=== PATIENT | male | born 1975 | race Caucasian/White ===

== ENCOUNTER 2018-06-09 12:56 | Emergency (ER) | payer SELFPAY ==
[2018-06-09] MEDS ORDERED: Ibuprofen 800 MG Tab PO ONE (13:15)
--- NOTE | 2018-06-09 13:19 | EDM.PDOC ---
ED HPI GENERAL MEDICAL PROBLEM - General Chief Complaint: Lower Extremity Injury/Pain Stated Complaint: RT LEG PAIN Time Seen by Provider: 06/09/18 13:10 - History of Present Illness INITIAL COMMENTS - FREE TEXT/NARRATIVE: HISTORY AND PHYSICAL: History of present illness: The patient is a 43-year-old male who denies any previous assisting medical problems presents with persistent pain to the dorsal aspect of his right foot after he dropped a pot belly still on it 2 weeks ago. He denies specific toe pain or proximal ankle and heel pain but says that the pain as been persistent and it is radiating. He has no other injuries and no specific ankle lower leg knee or hip pain on the right. The patient has not been taking much over-the- counter to try to help with discomfort and he says he has been placing ice on it. The patient does work standing for long periods of time and says that is worsening the discomfort. He did not see a provider with this initial injury presents today for evaluation Review of systems: As per history of present illness and below otherwise all systems reviewed and negative. Past medical history: As per history of present illness and as reviewed below otherwise noncontributory. Surgical history: As per history of present illness and as reviewed below otherwise noncontributory. Social history: No reported history of drug or alcohol abuse. Family history: As per history of present illness and as reviewed below otherwise noncontributory. Physical exam: General: Well-developed well-nourished man who is nontoxic and vital signs were noted by me. HEENT: Atraumatic, normocephalic, negative for conjunctival pallor or scleral icterus, mucous membranes moist, throat clear, neck supple, nontender, trachea midline. Lungs: Clear to auscultation, breath sounds equal bilaterally, chest nontender. Heart: S1S2, regular and rhythm no overt murmurs Abdomen: Soft, nondistended, nontender. NABS Pelvis: Stable nontender. Genitourinary: Deferred. Rectal: Deferred. Extremities: Atraumatic and full range of motion of all extremities with the exception of the dorsal aspect of the right foot where there is diffuse soft tissue swelling both visible and palpable and tenderness with palpation. I Do not appreciate any specific bony defects or crepitus in the distal toes are intact without tenderness or defects. The proximal ankle and heel are also without tenderness or defect as is the tib-fib knee femur and hip on the right side. Pulses are intact and cap refill is normal., negative for cords or calf pain. Neurovascular unremarkable. Neuro: Awake, alert, oriented. Cranial nerves II through XII unremarkable. Cerebellum unremarkable. Motor and sensory unremarkable throughout. Exam nonfocal. Diagnostics: X-ray right foot Therapeutics: Motrin, cam boot I discussed with the patient the negative x-rays and the need to follow-up with podiatry. We will place him in a cam boot and I will also give him Motrin and Ultram to use at home. I've also discussed with them symptomatic care Impression: Blunt trauma/injury to right dorsal foot, subacute Definitive disposition and diagnosis as appropriate pending reevaluation and review of above. Right Feet Pain Score (Numeric/FACES): 7 - Related Data Allergies Allergy/AdvReac Type Severity Reaction Status Date / Time Penicillins Allergy Other Verified 06/09/18 13:08 Home Meds: Home Meds . [No Known Home Meds] 06/09/18 [History] Past Medical History - Past Health History Medical/Surgical History: Denies Medical/Surgical History HEENT History: Reports: None Cardiovascular History: Reports: None Respiratory History: Reports: None Gastrointestinal History: Reports: None Genitourinary History: Reports: None Musculoskeletal History: Reports: None Neurological History: Reports: None Psychiatric History: Reports: None Endocrine/Metabolic History: Reports: None Hematologic History: Reports: None Immunologic History: Reports: None Oncologic (Cancer) History: Reports: None Dermatologic History: Reports: None - Infectious Disease History Infectious Disease History: Reports: None - Past Surgical History Head Surgeries/Procedures: Reports: None Male Surgical History: Reports: None Social & Family History - Tobacco Use Smoking Status *Q: Current Every Day Smoker Years of Tobacco use: 20 Packs/Tins Daily: 0.5 - Caffeine Use Caffeine Use: Reports: Coffee, Energy Drinks, Soda, Tea - Recreational Drug Use Recreational Drug Use: No Review of Systems - Review of Systems Review Of Systems: ROS reveals no pertinent complaints other than HPI. ED EXAM, GENERAL - Physical Exam Exam: See Below (See dictation) Course - Vital Signs Last Recorded V/S: Last Vital Signs Temp 36.6 C 06/09/18 13:04 Pulse 65 06/09/18 13:04 Resp 18 06/09/18 13:04 BP 113/70 06/09/18 13:04 Pulse Ox 98 06/09/18 13:04 - Orders/Labs/Meds Orders: Active Orders 24 hr Category Date Time Status Foot Comp Min 3V Rt [CR] Stat Exams 06/09/18 13:15 Taken DME for Discharge [COMM] Stat Oth 06/09/18 13:55 Ordered Meds: Medications Discontinued Medications Generic Name Dose Route Start Last Admin Trade Name Lenin PRN Reason Stop Dose Admin Ibuprofen 800 mg 06/09/18 13:15 06/09/18 13:19 Motrin PO 06/09/18 13:16 800 mg ONETIME ONE Administration Departure - Departure Time of Disposition: 13:56 Disposition: Home, Self-Care 01 Condition: Good Clinical Impression: Contusion of right foot Qualifiers: Encounter type: initial encounter Qualified Code(s): S90.31XA - Contusion of right foot, initial encounter - Discharge Information Referrals: PCP,Not In Area [Primary Care Provider] - Forms: ED Department Discharge Additional Instructions: The following information is given to patients seen in the emergency department who are being discharged to home. This information is to outline your options for follow-up care. We provide all patients seen in our emergency department with a follow-up referral. The need for follow-up, as well as the timing and circumstances, are variable depending upon the specifics of your emergency department visit. If you don't have a primary care physician on staff, we will provide you with a referral. We always advise you to contact your personal physician following an emergency department visit to inform them of the circumstance of the visit and for follow-up with them and/or the need for any referrals to a consulting specialist. The emergency department will also refer you to a specialist when appropriate. This referral assures that you have the opportunity for followup care with a specialist. All of these measure are taken in an effort to provide you with optimal care, which includes your followup. Under all circumstances we always encourage you to contact your private physician who remains a resource for coordinating your care. When calling for followup care, please make the office aware that this follow-up is from your recent emergency room visit. If for any reason you are refused follow-up, please contact the [facility] emergency department at and ask to speak to the emergency department charge nurse. MERLY[facility] Special[facility] clinic- Podiatry [address], [place] [address] Fax: [phone] Dr Willis Stephen [address] [place] [id number] These elevate the foot as much as possible especially after work to the height that I showed you in the ED. Place ice on it whenever possible to help with swelling. Please call and schedule a follow-up appointment with one of our foot doctor using resources given to above. Return to ER as needed and as discussed. Use Motrin as you have been prescribed for her during the day and use the tramadol as needed for nighttime for pain. Wear the Torrez you have been given today during the daytime and when you are doing activities to provide structure and support into your followed up by the journeyman machinist. Please remove the boot at sleep times - My Orders Last 24 Hours: My Active Orders 06/09/18 13:15 Foot Comp Min 3V Rt [CR] Stat 06/09/18 13:55 DME for Discharge [COMM] Stat - Assessment/Plan Last 24 Hours: My Active Orders 06/09/18 13:15 Foot Comp Min 3V Rt [CR] Stat 06/09/18 13:55 DME for Discharge [COMM] Stat
--- NOTE | 2018-06-10 09:50 | CR ---
EXAM DATE: 06/09/18 PATIENT'S AGE: 43 Patient: LUPE ARANA Facility: [place], [place] Site . Site : [id number] Study: XRay Extremity Right [id number] foot-06/09/2018 1:40:48 PM Ordering Physician: Augustus Marcus Final Report: INDICATION: Trauma. Stove fell on foot. COMPARISON: none TECHNIQUE: Three-view right foot FINDINGS: The bones are anatomically aligned. There is no evidence of fracture, erosion or intrinsic bone lesion. There is soft tissue swelling over the dorsum of the foot but no evidence of a foreign body. IMPRESSION: No fracture identified. Dictated by Chito Basilio MD @ Jun 09 2018 1:47PM (Electronic Signature) Report Signed by Proxy. ANISH
== END 2018-06-09 14:15 | disposition home or self-care (01) ==
LOC: MW.ED 12:56
DX: S90.31XA Contusion of right foot, initial encounter (principal); F17.210 Nicotine dependence, cigarettes, uncomplicated; W20.8XXA Other cause of strike by thrown, projected or falling object, initial encounter; Z88.0 Allergy status to penicillin
CPT/HCPCS: 73630; 99283; A9270